=== PATIENT | female | born 1940 | race Caucasian/White ===

== ENCOUNTER → 2018-01-10 | Outpatient (CLI) | payer MEDICARE ==
--- NOTE | 2018-01-10 11:28 | KCIC ---
Bone mineral density study dated 01/10/2018. Indication: Postmenopausal screening. Findings: Lower lumbar spine: BMD (g/cm2): Total L1-L4.......... 1.127. . T-Score: Total L1-L4.................... 0.7. Z-Score: Total L1-L4 ................... 3.2. Left Hip: BMD (g/cm2): Total .......... 0.881. . T-Score: Total .................... -0.5. Z-Score: Total ................... 1.3. World Health Organization criteria for BMD interpretation classify patients as Normal (T-score at or above -1.0), Osteopenic (T-score between -1.0 and -2.5), or Osteoporotic (T-score at or below -2.5). Impression: According to the World Health Organization, bone mineral density values within the lower lumbar spine and left femoral neck are within the range of normal. Electronically signed by: Yaron Doll MD (01/10/2018 11:25 AM) [id number]
== END | disposition home or self-care (01) ==
LOC: KCIC DEXA 10:26
DX: Z13.820 Encounter for screening for osteoporosis (principal); Z78.0 Asymptomatic menopausal state
CPT/HCPCS: 77080

== ENCOUNTER → 2018-01-17 | Outpatient (CLI) | payer MEDICARE ==
--- NOTE | 2018-01-17 16:21 | KCIC ---
CT of sinuses without comparison for chronic sinusitis, history of congestion, drainage, cough, has been on antibiotics. TECHNIQUE: Contiguous helical 2 mm axial images are obtained through the sinuses. Sagittal and coronal reformations are evaluated. FINDINGS: Mastoid air cells are clear. No significant soft tissue abnormalities are identified, though evaluation of soft tissues is limited by acquisition algorithm. There are air-fluid levels within both maxillary sinuses consistent with acute sinusitis. Bilateral frontal and sphenoid sinuses are clear. There is patchy mucosal thickening throughout the ethmoid air cells. There is nasal septal deviation to the left. Bilateral maxillary antrostomies have been performed and are widely patent. Turbinates are grossly unremarkable. IMPRESSION: 1. Bilateral acute maxillary sinusitis. There is wide patency of the maxillary antrostomies. Electronically signed by: Nguyễn De Leon MD (01/17/2018 4:18 PM) [id number]
== END | disposition home or self-care (01) ==
LOC: KCIC CT 10:13
PROVIDERS: ATTEND Allergy & Immunology
DX: J32.0 Chronic maxillary sinusitis (principal); J34.2 Deviated nasal septum
CPT/HCPCS: 70486